=== PATIENT | male | born 1945 | race Caucasian/White ===

== ENCOUNTER → 2016-08-04 | Outpatient (CLI) | payer OTHER ==
--- NOTE | 2016-08-04 14:10 | DI ---
INDICATION: ITS.REASON: DX TESTING PROCEDURE: CHEST 2-VIEWS UPRIGHT (PA \T\ LAT) Encounter: Initial COMPARISON: None FINDINGS: The lungs are clear without evidence of focal abnormal airspace opacity. There is no pleural effusion or pneumothorax. Poststernotomy changes are present. The heart size, mediastinal contours and pulmonary vascularity are within normal limits. There is no significant skeletal abnormality. IMPRESSION: No acute cardiopulmonary disease. .
== END ==
LOC: IMA 13:18
DX: Z02.9 Encounter for administrative examinations, unspecified (principal)

== ENCOUNTER → 2016-08-05 | Outpatient (CLI) | payer OTHER ==
--- NOTE | 2016-08-05 20:47 | ECHOF ---
DATE OF PROCEDURE 08/05/2016 INDICATION This is a two-dimensional echo with spectral Doppler, color-flow, and M-mode. DESCRIPTION OF PROCEDURE Left atrium is dilated. Left ventricular end-diastolic dimension is normal. Left ventricular wall thickness is increased. LV systolic function is normal with ejection fraction of 60%. Right atrium is dilated. Right ventricle is normal. Aortic root dimension is normal. Mitral valve annulus is calcified. Mitral valve leaflets are normal. Aortic valve shows fibrocalcific changes with no stenosis or insufficiency. Tricuspid valve shows no tricuspid regurgitation. Pulmonary valve was not seen well. There is no pericardial effusion. IMPRESSION 1. Normal LV systolic function with ejection fraction of 60%. 2. Mild biatrial dilation. 3. Left ventricular hypertrophy. 4. Mitral annulus calcification. 5. Aortic sclerosis. MTDD
== END ==
LOC: IMA 13:39
DX: Z02.9 Encounter for administrative examinations, unspecified (principal)
CPT/HCPCS: 93306